=== PATIENT | male | born 1975 | race Caucasian/White ===

== ENCOUNTER 2024-02-10 17:19 | Emergency (ER) | payer MEDICAID, SELFPAY ==
[2024-02-10 17:42] VITALS: BP 134/88; PULSE 77; TEMP 37; O2SAT 94; BMI 44.9
--- NOTE | 2024-02-10 17:51 | XR_ITS ---
[address] [address] Patient Name: LIVIA SINHA MRN: [id number] date: 1975 Sex: M Assigned Patient Location: ER Current Patient Location: ER Accession/Order Number: [id number] Exam Date: 02/10/2024 18:03 Report Date: 02/10/2024 18:55 At the request of: BRADLEY DICKSON Procedure: XR chest 1V Exam: Radiographs: XR chest 1V Reason for exam: chest pain Comparison: None XR/XR chest 1V IMPRESSION: Unremarkable chest x-ray. Electronically authenticated by: WELLINGTON MCMULLEN Date: 02/10/2024 18:55
--- NOTE | 2024-02-10 17:51 | ECG_ITS ---
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
--- NOTE | 2024-02-10 17:59 | ED.CHESTPAI1 ---
HPI - Chest Pain General Chief Complaint: Chest Pain Stated Complaint: chest pain Time Seen by Provider: 02/10/24 17:48 Source: patient Mode of arrival: walk-in Limitations: no limitations History of Present Illness HPI narrative: 48-year-old male presents here with chief complaint of chest pain. He states pain began late last evening. He states he began with numbness and tingling left upper extremity and now has pain to the chest. He states it feels like someone sitting on his chest . Denies any diaphoresis or nausea. Denies emesis. Denies a cardiac history. He is morbidly obese. He states when he woke up this morning he had increased chest pain and became short of breath when he walked to the restroom. Related Data Home Medications ?Medication ?Instructions ?Recorded ?Confirmed aripiprazole 15 mg tablet mg 02/10/24 bupropion HCl 100 mg tablet,12 hr 100 mg PO DAILY 02/10/24 02/10/24 sustained-release (Wellbutrin SR) buspirone 30 mg tablet mg 02/10/24 hydroxyzine pamoate 50 mg capsule mg 02/10/24 lamotrigine 25 mg tablet (Lamictal) 25 mg PO DAILY 02/10/24 02/10/24 Allergies Allergy/AdvReac Type Severity Reaction Status Date / Time ciprofloxacin (From Cipro) Allergy Anaphylaxis Verified 02/10/24 17:51 Review of Systems ROS Narrative All Systems are negative except as noted/marked.All systems reviewed and otherwise negative PFSH PFSH Social History Little interest or pleasure in doing things: not at all Feeling down, depressed, or hopeless: not at all Exam Constitutional Vital Signs, click to edit/add: Last Vital Signs Temp 98.6 F 02/10/24 17:42 Pulse 77 02/10/24 17:42 Resp 24 H 02/10/24 17:42 BP 134/88 02/10/24 17:42 Pulse Ox 94 L 02/10/24 17:42 O2 Del Method Room Air 02/10/24 17:42 Course Vital Signs Vital signs: Vital Signs Temperature 98.6 F 02/10/24 17:42 Pulse Rate 77 02/10/24 17:42 Respiratory Rate 24 H 02/10/24 17:42 Blood Pressure 134/88 02/10/24 17:42 Pulse Oximetry 94 L 02/10/24 17:42 Oxygen Delivery Method Room Air 02/10/24 17:42 Temperature 98.6 F 02/10/24 17:42 Pulse Rate 77 02/10/24 17:42 Respiratory Rate 24 H 02/10/24 17:42 Blood Pressure 134/88 02/10/24 17:42 Pulse Oximetry 94 L 02/10/24 17:42 Oxygen Delivery Method Room Air 02/10/24 17:42 MDM - Chest Pain MDM Narrative Medical decision making narrative: 48-year-old male presents here with chief complaint of chest pain. He states pain began late last evening. He states he began with numbness and tingling left upper extremity and now has pain to the chest. He states it feels like someone sitting on his chest . Denies any diaphoresis or nausea. Denies emesis. Denies a cardiac history. He is morbidly obese. He states when he woke up this morning he had increased chest pain and became short of breath when he walked to the restroom. In the emergency room patient had IV established blood work was drawn patient was worked up for cardiac evaluation. Both troponins have been negative. Chest x-ray and EKGs were also unremarkable. Patient's story was concerning as he had had chest pain which worsened and increased making him short of breath. Patient is obese. Patient refuses to be hospitalized for further evaluation. Not AGAINST MEDICAL ADVICE for chest pain. 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 I did advise patient that I was concerned of him signing out AGAINST MEDICAL ADVICE and told him to return immediately had chest pain return. Patient verbalizes understanding and is also made aware to follow-up with primary care physician or seek a substation engineer. Differential Diagnosis Differential diagnosis: Likely stable angina, unstable angina pectoris, atypical chest pain and st elevation myocardial infarction Medical Records Data Attestation: I reviewed the patient's medical records. Lab Data Attestation: I reviewed the patient's lab results. Labs: Lab Results 02/10/24 02/10/24 02/10/24 Range/Units 18:00 19:32 19:54 WBC 9.3 (4.0-11.0) 10^3/uL RBC 4.14 L (4.70-6.10) 10^6/uL Hgb 14.3 (14.0-18.0) g/dL Hct 40.5 L (42.0-54.0) % MCV 97.8 H (80.0-94.0) fL MCH 34.5 H (25.9-34.0) pg MCHC 35.3 H (29.9-35.2) g/dL RDW 13.4 (11.0-15.0) % Plt Count 253 (150-450) 10^3/uL MPV 9.6 (9.5-13.5) fL Neut % (Auto) 71.6 (43.0-75.0) % Lymph % (Auto) 18.0 L (20.5-60.0) % [place] % (Auto) 8.2 (1.7-12.0) % Eos % (Auto) 1.5 (0.9-7.0) % Baso % (Auto) 0.3 (0.2-2.0) % Neut # (Auto) 6.7 H (1.4-6.5) 10^3/uL Lymph # (Auto) 1.7 (1.2-3.8) 10^3/uL [place] # (Auto) 0.8 (0.3-0.8) 10^3/uL Eos # (Auto) 0.1 (0.0-0.7) 10^3/uL Baso # (Auto) 0.0 (0.0-0.1) 10^3/uL Abs Immat Gran (auto) 0.04 H (0.00-0.03) 10^3/uL Imm/Tot Granulo (auto) 0.4 (0.0-0.5) % PT 9.9 (9.0-11.6) sec INR 0.93 APTT 28.1 (22.3-36.2) sec Sodium 139 (136-145) mmol/L Potassium 4.0 (3.5-5.1) mmol/L Chloride 106 (98-107) mmol/L Carbon Dioxide 27.6 (21.0-32.0) mmol/L Anion Gap 9.4 BUN 16.0 (7.0-18.0) mg/dL Creatinine 1.08 (0.70-1.30) mg/dL Est GFR ( Amer) >60 (>=60 mL/min/1.73m^2) Est GFR (Non-Af Amer) >60 (>=60 mL/min/1.73m^2) BUN/Creatinine Ratio 14.8 Glucose 114 H (74-106) mg/dL Calcium 8.8 (8.5-10.1) mg/dL Total Bilirubin 0.2 (0.2-1.0) mg/dL AST 33 (15-37) U/L ALT 44 (16-63) U/L Alkaline Phosphatase 102 (46-116) U/L Troponin I High Sens 7.4 7.3 (4.0-76.1) pg/mL NT-Pro-B Natriuret Pep 141.0 (<=900.0) pg/mL Total Protein 7.0 (6.4-8.2) g/dL Albumin 3.4 (3.4-5.0) g/dL Globulin 3.6 g/dL Albumin/Globulin Ratio 0.9 Influenza Type A Ag Negative Influenza Type B Ag Negative SARS-CoV-2 Ag (CV2AG) Negative (NEGATIVE) Streptococcus Screen Negative Imaging Data Chest x-ray: Radiologist's impression: ITS Impressions Chest X-Ray 02/10/24 17:51 IMPRESSION: Unremarkable chest x-ray. Electronically authenticated by: WELLINGTON MCMULLEN Date: 02/10/2024 18:55 ECG Data Interpretation: 1747 sinus rhythm with a rate of 77 bpm, AR interval 146 ms QRS duration 82 ms no STEMI, 1846 with a rate of 69 bpm AR of 154 ms QRS duration 80 ms no STEMI 1951 rate 68 bpm AR interval 148 ms QRS duration 84 ms no STEMI Heart Score History: Slightly/Non-Suspicious ECG: Normal Age: >45-<65 years Risk Factors: 1 or 2 Risk Factors Troponin: <Normal Limit Total Heart Score Recommendations & Risks:: 2 Discharge Plan Discharge Stand Alone Forms: Portal Instructions Chief Complaint: Chest Pain Clinical Impression: Chest pain Patient Disposition: Left Against Medical Advice Time of Disposition Decision: 20:51 Condition: Good Prescriptions / Home Meds: No Action lamotrigine [Lamictal] 25 mg tablet 25 mg PO DAILY hydroxyzine pamoate 50 mg capsule buspirone 30 mg tablet aripiprazole 15 mg tablet bupropion HCl [Wellbutrin SR] 100 mg tablet sustained-release 12 hr 100 mg PO DAILY Print Language: Nepalese Instructions: Chest Pain (ED) Referrals: Physician,Non-Staff, MD [Primary Care Provider] - 1 week
[2024-02-10] MEDS: ASPIRIN 81 MG TAB.CHEW 324 MG PO (18:06)
[2024-02-10] MEDS: ONDANSETRON PF 4 MG/2 ML VIAL IV (18:07)
[2024-02-10] MEDS: MORPHINE SULFATE 4 MG/ML VIAL IV (18:07)
[2024-02-10 18:09] LABS: Basophils Percent Auto 0.3 % (0.2-2.0); Eosinophils Absolute Auto 0.1 10^3/uL (0.0-0.7); Eosinophils Percent Auto 1.5 % (0.9-7.0); Hematocrit 40.5 % (42.0-54.0); Hemoglobin 14.3 g/dL (14.0-18.0); Immature Granulocytes Abs Auto 0.04 10^3/uL (0.00-0.03); Immature Granulocytes Pct Auto 0.4 % (0.0-0.5); Lymphocytes Absolute Auto 1.7 10^3/uL (1.2-3.8); Mean Corpuscular HGB Conc 35.3 g/dL (29.9-35.2); Mean Corpuscular Hemoglobin 34.5 pg (25.9-34.0); Mean Corpuscular Volume 97.8 fL (80.0-94.0); Mean Platelet Volume 9.6 fL (9.5-13.5); Monocytes Absolute Auto 0.8 10^3/uL (0.3-0.8); Monocytes Percent Auto 8.2 % (1.7-12.0); Neutrophils Absolute Auto 6.7 10^3/uL (1.4-6.5); Neutrophils Percent Auto 71.6 % (43.0-75.0); Platelet Count 253 10^3/uL (150-450); Red Blood Count 4.14 10^6/uL (4.70-6.10); Red Cell Distribution Width 13.4 % (11.0-15.0); White Blood Count 9.3 10^3/uL (4.0-11.0)
[2024-02-10] MEDS: NITROGLYCERIN 0.1 MG/HR PATCH.TD24 1 PATCH TD (18:30)
[2024-02-10 18:31] LABS: INR 0.93; Partial Thromboplastin Time 28.1 sec (22.3-36.2); Prothrombin Time 9.9 sec (9.0-11.6)
[2024-02-10 18:36] LABS: Alanine Aminotransferase 44 U/L (16-63); Albumin Globulin Ratio 0.9; Albumin Level 3.4 g/dL (3.4-5.0); Alkaline Phosphatase 102 U/L (46-116); Anion Gap 9.4; Aspartate Amino Transferase 33 U/L (15-37); BUN Creatinine Ratio 14.8; Bilirubin Total 0.2 mg/dL (0.2-1.0); Calcium 8.8 mg/dL (8.5-10.1); Carbon Dioxide 27.6 mmol/L (21.0-32.0); Chloride 106 mmol/L (98-107); Estimated GFR (African America >60 (>=60 mL/min/1.73m^2); Estimated GFR (Non-African Ame >60 (>=60 mL/min/1.73m^2); Globulin 3.6 g/dL; Glucose 114 mg/dL (74-106); Sodium 139 mmol/L (136-145)
[2024-02-10 18:39] LABS: Troponin I High Sensitivity 7.4 pg/mL (4.0-76.1)
--- NOTE | 2024-02-10 19:00 | ECG_ITS ---
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
[2024-02-10] MEDS: KETOROLAC TROMETHAMINE 30 MG/ML VIAL IVP (19:20)
--- NOTE | 2024-02-10 20:00 | ECG_ITS ---
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
[2024-02-10 20:14] LABS: Internal Control Within Normal Limits; Strep A Antigen Screen Negative
[2024-02-10 20:23] LABS: Influenza Virus A Antigen Negative; Influenza Virus B Antigen Negative; Internal Control Within Normal Limits; SARS-CoV-2 Ag NEGATIVE (NEGATIVE)
[2024-02-10 20:36] LABS: Troponin I High Sensitivity 7.3 pg/mL (4.0-76.1)
[2024-02-10 21:02] VITALS: BP 122/75; PULSE 71; O2SAT 95
[2024-02-12 09:43] LABS: BOX Test Reference Lab FIRELANDS
== END 2024-02-10 21:06 | disposition left against medical advice (07) ==
PROVIDERS: Physician Assistant; Emergency Provider Emergency Medicine
DX: R07.9 Chest pain, unspecified (principal); Z53.29 Procedure and treatment not carried out because of patient's decision for other reasons; R06.02 Shortness of breath; E66.01 Morbid (severe) obesity due to excess calories; Z68.41 Body mass index [BMI] 40.0-44.9, adult
CPT/HCPCS: 36415; 71045; 80053; 83880; 84484; 85025; 85610; 85730; 87070; 87081; 87804; 87811; 87880; 93005; 96374; 96375; 99285; J1885; J2270; J2405